=== PATIENT | male | born 1995 | race Caucasian/White ===

== ENCOUNTER 2016-12-31 19:15 | Emergency (ER) | payer MEDICAID ==
[~2016-12-31] VITALS: Ht 172.7 cm; Wt 98.5 kg
[2016-12-31 19:29] VITALS: Ht 172.7 cm; Wt 98.5 kg
[2016-12-31] MEDS ORDERED: SOD CHLORIDE 0.9% 1,000 ML IV STA (20:54)
[2016-12-31] MEDS ORDERED: KETOROLAC 30 MG INJ IV STA (20:54)
[2016-12-31] MEDS ORDERED: ONDANSETRON 4 MG INJ IV STA (20:54)
[2016-12-31 21:42] LABS: BASOPHIL # 0.1 10^3/ul (0.0-0.1); BASOPHILS % 0.6 % (0.0-2.0); EOSINOPHILS # 0.1 10^3/ul (0.0-0.5); EOSINOPHILS % 1.6 % (0.0-7.0); HEMATOCRIT 45.4 % (42.0-52.0); HEMOGLOBIN 15.2 g/dl (14.0-18.0); LYMPHOCYTES # 2.8 10^3/ul (0.8-2.9); LYMPHOCYTES % 31.5 % (15.0-51.0); MEAN CORPUSCULAR HEMOGLOBIN 29.1 pg (29.0-33.0); MEAN CORPUSCULAR HGB CONC 33.5 g/dl (32.0-37.0); MEAN PLATELET VOLUME 9.9 fl (7.4-10.4); MONOCYTE # 0.8 10^3/ul (0.3-0.9); MONOCYTES % 9.5 % (0.0-11.0); NEUTROPHILS % 56.6 % (39.0-77.0); PLATELET COUNT 410 10^3/UL (140-415); RED BLOOD COUNT 5.22 10^6/ul (4.70-6.10); RED CELL DISTRIBUTION WIDTH 12.9 % (11.5-14.5); WHITE BLOOD COUNT 8.9 10^3/ul (4.8-10.8)
[2016-12-31 21:49] LABS: ADD UMIC YES; UR ASCORBIC ACID 20 mg/dL (NEGATIVE); UR BILIRUBIN (Dip) NEGATIVE (NEGATIVE); UR BLOOD (Dip) NEGATIVE (NEGATIVE); UR CLARITY CLEAR (CLEAR); UR COLOR YELLOW (YELLOW); UR GLUCOSE (Dip) NEGATIVE (NEGATIVE); UR KETONES (Dip) NEGATIVE (NEGATIVE); UR LEUKOCYTE ESTERASE (Dip) 1+ Leu/ul (NEGATIVE); UR MUCUS FEW /HPF (NONE SEEN); UR NITRITE (Dip) NEGATIVE (NEGATIVE); UR RBC 6 /HPF (0-5); UR SPECIFIC GRAVITY (Dip) 1.027 (1.003-1.030); UR TOTAL PROTEIN (Dip) 1+ mg/dl (NEGATIVE); UR UROBILINOGEN (Dip) 2+ mg/dL (NEGATIVE)
[2016-12-31 21:51] LABS: ALBUMIN/GLOBULIN RATIO 1.51; BILIRUBIN,INDIRECT 0.4 mg/dl (0-1.1); BILIRUBIN,TOTAL 0.4 mg/dl (0.2-1.3); CREATININE 0.86 mg/dl (0.61-1.24); POTASSIUM 3.7 mmol/L (3.5-5.1); TOTAL PROTEIN 8.3 g/dl (6.1-8.1)
--- NOTE | 2016-12-31 22:11 | RADRPT ---
PROCEDURE: CT Abdomen and Pelvis without contrast. CLINICAL INDICATION: Flank pain TECHNIQUE: CT of the abdomen and pelvis was performed on a multi-detector scanner without IV contr ast. Coronal and sagittal images were reformatted from the axial data set. One or more of the foll owing dose reduction techniques were used: automated exposure control, adjustment of the mA and/or k V according to patient size, use of iterative reconstruction technique. CTDI = 19.35 mGy. DLP = 112 9.46 mGy-cm. COMPARISON: None. FINDINGS: The lung bases are clear. The heart size is normal, without pericardial effusion. Liver, gallbladd er, biliary tree, pancreas, spleen, adrenal glands and kidneys are unremarkable. There is no urolit hiasis or obstructive uropathy. The stomach is grossly unremarkable. The aorta is of normal caliber. There is no retroperitoneal lymphadenopathy. The rayray hepatis reg ion is clear. No bowel obstruction, free intraperitoneal air or abscess is identified. The appendix is well visual ized and normal. There is no diverticulosis, diverticulitis or colitis. Urinary bladder is grossly u nremarkable. No pelvic mass, free fluid or lymphadenopathy is identified. The surrounding osseous structures are unremarkable. No osteolytic or osteoblastic lesion is detect ed. IMPRESSION: 1. Unremarkable CT scan of the abdomen and pelvis. 2. No mass, lymphadenopathy, or focal acute inflammatory process is identified. 3. No urolithiasis or obstructive uropathy is seen. RPTAT: HDWR .Rafael Ramos MD, MD Date Time Electronically viewed and signed by .Rafael Ramos MD, MD on 12/31/2016 22:10 .R/
[2016-12-31] MEDS ORDERED: CIPR500T4 PO (22:58)
[2016-12-31] MEDS ORDERED: NAPR-260 PO (22:58)
[2016-12-31] MEDS ORDERED: CEFTRIAXONE 1 GM/50 ML (PMX) 50 ML IVPB ONE (23:00)
--- NOTE | 2016-12-31 23:15 | ERD ---
ER Documentation Chief Complaint Date/Time DATE: 12/31/16 TIME: 23:12 Chief Complaint Pt reports bilateral kidney pain and passed a stone this morning HPI 21-year-old male patient with no significant past medical history presents to the ED complaining of bilateral flank pain that started earlier today. Patient reports that he feels like he passed kidney stones. States that he drank 1 L of water and feels like he still having difficulty urinating due to the pain. Denies any penile discharge. States that he is sexually active. Reports that he has 1 partner. He noticed some slight hematuria. Denies any polyuria, polydipsia. Denies any fever, chills, abdominal pain, nausea, vomiting, diarrhea, constipation, scrotal pain. Denies any scrotal trauma or back trauma. ROS All systems reviewed and are negative except as per history of present illness. Medications Home Meds Active Scripts Naproxen* (Naprosyn*) 500 Mg Tablet, 500 MG PO BID Y for PAIN AND/OR INFLAMMATION, #30 TAB Prov:DONOVAN FUNEZ PA-C 12/31/16 Ciprofloxacin Hcl* (Ciprofloxacin Hcl*) 500 Mg Tablet, 500 MG PO BID for 10 Days , TAB Prov:DONOVAN FUNEZ PA-C 12/31/16 Allergies Allergies: Coded Allergies: No Known Allergy (Unverified , 12/31/16) PMhx/Soc Medical and Surgical Hx: pt denies Medical Hx, pt denies Surgical Hx Hx Alcohol Use: No Hx Substance Use: No Hx Tobacco Use: Yes (3CIG/DAY) Smoking Status: Light tobacco smoker Physical Exam Vitals Vital Signs Date Time Temp Pulse Resp B/P Pulse Ox O2 Delivery O2 Flow Rate FiO2 12/31/16 19:29 99.0 104 20 126/94 97 Physical Exam Const: [id number], well-nourished. In no acute distress. Head: Atraumatic, normocephalic Eyes: Normal Conjunctiva without injection. No purulent discharge. ENT: Normal external ear, nose. Moist oropharynx without tonsillar exudates. Non -erythematous pharynx. Uvula midline. No drooling. No trismus. Neck: No cervical midline tenderness. Full range of motion. No meningismus. No cervical lymphadenopathy. No JVD. Resp: Clear to auscultation bilaterally. No wheezing, rhonchi, rales, or crackles. No accessory muscle use. No retractions. Cardio: Regular rate and rhythm. No murmurs, rubs or gallops. Abd: Soft, nontender, non distended. Normal bowel sounds. No palpable masses. No rebound tenderness. No guarding. Negative McBurney's point. Negative psoas sign. Negative obturator sign. Skin: No petechiae or rashes Back: No midline tenderness. No CVA tenderness. Ext: No cyanosis, or edema. Neur: Awake and alert. Normal gait. Normal coordination. Psych: Normal Mood and Affect Result Diagram: 12/31/16211412/31/162114 Results 24 hrs Laboratory Tests Test 12/31/16 20:20 12/31/16 21:15 Urine Color YELLOW Urine Clarity CLEAR Urine pH 5.0 Urine Specific [place] 1.027 Urine Ketones NEGATIVEmg/dL Urine Nitrite NEGATIVEmg/dL Urine Bilirubin NEGATIVEmg/dL Urine Urobilinogen 2+mg/dL Urine Leukocyte Esterase 1+Ruby/ul Urine Microscopic RBC 6/HPF Urine Microscopic WBC 26/HPF Urine Mucus FEW/HPF Urine Hemoglobin NEGATIVEmg/dL Urine Glucose NEGATIVEmg/dL Urine Total Protein 1+mg/dl White Blood Count 8.910^3/ul Red Blood Count 5.2210^6/ul Hemoglobin 15.2g/dl Hematocrit 45.4% Mean Corpuscular Volume 87.0fl Mean Corpuscular Hemoglobin 29.1pg Mean Corpuscular Hemoglobin Concent 33.5g/dl Red Cell Distribution Width 12.9% Platelet Count 54740^3/UL Mean Platelet Volume 9.9fl Neutrophils % 56.6% Lymphocytes % 31.5% Monocytes % 9.5% Eosinophils % 1.6% Basophils % 0.6% Nucleated Red Blood Cells % 0.0/100WBC Neutrophils # 5.010^3/ul Lymphocytes # 2.810^3/ul Monocytes # 0.810^3/ul Eosinophils # 0.110^3/ul Basophils # 0.110^3/ul Nucleated Red Blood Cells # 0.010^3/ul Sodium Level 143mmol/L Potassium Level 3.7mmol/L Chloride Level 101mmol/L Carbon Dioxide Level 29mmol/L Anion Gap 17 Blood Urea Nitrogen 12mg/dl Creatinine 0.86mg/dl Glucose Level 83mg/dl Calcium Level 10.0mg/dl Total Bilirubin 0.4mg/dl Direct Bilirubin 0.00mg/dl Indirect Bilirubin 0.4mg/dl Aspartate Amino Transf (AST/SGOT) 31IU/L Alanine Aminotransferase (ALT/SGPT) 61IU/L Alkaline Phosphatase 78IU/L Total Protein 8.3g/dl Albumin 5.0g/dl Globulin 3.30g/dl Albumin/Globulin Ratio 1.51 Lipase 122U/L Current Medications Medications (Trade) Dose Ordered Sig/Be Route PRN Reason Start Time Stop Time Status Last Admin Dose Admin Sodium Chloride (NS) 1,000 ml @ 1,000 mls/hr Q1H STAT IV 12/31/16 20:54 12/31/16 21:53 DC 12/31/16 21:22 Ondansetron HCl (Zofran Inj) 4 mg ONCE STAT IV 12/31/16 20:54 12/31/16 20:59 DC 12/31/16 21:22 Ketorolac Tromethamine 30 mg 30 mg ONCE STAT IV 12/31/16 20:54 12/31/16 20:59 DC 12/31/16 21:22 Ceftriaxone Sodium (Rocephin) 50 ml @ 100 mls/hr ONCE ONCE IVPB 12/31/16 23:00 12/31/16 23:29 DC 12/31/16 22:52 Procedures/MDM This is a 21-year-old male patient with no significant past medical history presents to the ED complaining of bilateral flank pain. Patient is afebrile and nontoxic-appearing. Patient was further worked up with CBC, CMP, lipase, UA , CT of the abdomen and pelvis without contrast. Patient's pain and symptoms have improved after treatment with 1 liter of normal saline, 30 mg IV ketorolac. CBC: No leukocytosis. No e/o of systemic infection. No e/o anemia. CMP: No e/o severe acidosis, alkalosis, renal failure, diabetic ketoacidosis, liver disease Lipase within normal limits. Urine: No leukocyte esterase, no nitrites, no hematuria. PROCEDURE: CT Abdomen and Pelvis without contrast. CLINICAL INDICATION: Flank pain TECHNIQUE: CT of the abdomen and pelvis was performed on a multi-detector scanner without IV contrast. Coronal and sagittal images were reformatted from the axial data set. One or more of the following dose reduction techniques were used: automated exposure control, adjustment of the mA and/or kV according to patient size, use of iterative reconstruction technique. CTDI = 19.35 mGy. DLP = 1129.46 mGy-cm. COMPARISON: None. FINDINGS: The lung bases are clear. The heart size is normal, without pericardial effusion. Liver, gallbladder, biliary tree, pancreas, spleen, adrenal glands and kidneys are unremarkable. There is no urolithiasis or obstructive uropathy. The stomach is grossly unremarkable. The aorta is of normal caliber. There is no retroperitoneal lymphadenopathy. The rayray hepatis region is clear. No bowel obstruction, free intraperitoneal air or abscess is identified. The appendix is well visualized and normal. There is no diverticulosis, diverticulitis or colitis. Urinary bladder is grossly unremarkable. No pelvic mass, free fluid or lymphadenopathy is identified. The surrounding osseous structures are unremarkable. No osteolytic or osteoblastic lesion is detected. IMPRESSION: 1. Unremarkable CT scan of the abdomen and pelvis. 2. No mass, lymphadenopathy, or focal acute inflammatory process is identified. 3. No urolithiasis or obstructive uropathy is seen. Patient likely passed his kidney stones here in the ED. Patient urinated and he noticed some calcified stones in the urine cup. Patient was able to urinate here in the ED without difficulty. Patient will be treated for a urinary tract infection with Rocephin here in the ED. Low suspicion for testicular torsion, urinary retention gastritis, GERD, peptic ulcer disease, cholecystitis, choledocholithiasis, cholangitis, pancreatitis, appendicitis, bowel obstruction , ileus, volvulus, nephrolithiasis, pyelonephritis, hepatitis, perforated viscus , diverticulitis, abdominal hernia, acute abdomen, mesenteric ischemia or other emergent conditions. Discharge medications: Ciprofloxacin, Naproxen Follow up with primary care physician in 1-2 days for referral to a urologist for further evaluation and treatment. Instructed patient to return to the ED sooner for any worsening symptoms. Patient's questions were answered. Patient understood and agreed with discharge plan. Patient discharged stable. Departure Diagnosis: Primary Impression: Flank pain Condition: Stable Patient Instructions: Urinary Tract Infections in Men, Kidney Stone, Passed Referrals: COMMUNITY CLINICS YOU HAVE RECEIVED A MEDICAL SCREENING EXAM AND THE RESULTS INDICATE THAT YOU DO NOT HAVE A CONDITION THAT REQUIRES URGENT TREATMENT IN THE EMERGENCY DEPARTMENT. FURTHER EVALUATION AND TREATMENT OF YOUR CONDITION CAN WAIT UNTIL YOU ARE SEEN IN YOUR DOCTORS OFFICE WITHIN THE NEXT 1-2 DAYS. IT IS YOUR RESPONSIBILITY TO MAKE AN APPOINTMENT FOR FOLOW-UP CARE. IF YOU HAVE A PRIMARY DOCTOR --you should call your primary doctor and schedule an appointment IF YOU DO NOT HAVE A PRIMARY DOCTOR YOU CAN CALL OUR PHYSICIAN REFERRAL HOTLINE AT IF YOU CAN NOT AFFORD TO SEE A PHYSICIAN YOU CAN CHOSE FROM THE FOLLOWING [facility] [id number] [facility] [address] [facility] [address] [facility] [address] [facility] [address] [facility]. [facility] [address] [facility] YOU HAVE RECEIVED A MEDICAL SCREENING EXAM AND THE RESULTS INDICATE THAT YOU DO NOT HAVE A CONDITION THAT REQUIRES URGENT TREATMENT IN THE EMERGENCY DEPARTMENT. FURTHER EVALUATION AND TREATMENT OF YOUR CONDITION CAN WAIT UNTIL YOU ARE SEEN IN YOUR DOCTORS OFFICE WITHIN THE NEXT 1-2 DAYS. IT IS YOUR RESPONSIBILITY TO MAKE AN APPOINTMENT FOR FOLOW-UP CARE. IF YOU HAVE A PRIMARY DOCTOR --you should call your primary doctor and schedule and appointment IF YOU DO NOT HAVE A PRIMARY DOCTOR YOU CAN CALL OUR PHYSICIAN REFERRAL HOTLINE AT . IF YOU CAN NOT AFFORD TO SEE A PHYSICIAN YOU CAN CHOSE FROM THE FOLLOWING [facility] INSTITUTIONS: [facility] [address] [place] [address] [facility] [address] [place] [address] [facility] [address] [place] [address] [facility] Additional Instructions: FOLLOW UP WITH YOUR PRIMARY CARE PHYSICIAN TOMORROW for a referral to see a urologist. Return to this facility if you are not improving as expected. DONOVAN FUNEZ PA-C Dec 31, 2016 23:15
== END 2016-12-31 23:29 | disposition home or self-care (01) ==
LOC: FTE 19:15 → EDSEX 19:15 → FTE 23:29
DX: R10.9 Unspecified abdominal pain (principal); F17.210 Nicotine dependence, cigarettes, uncomplicated
CPT/HCPCS: 36415; 74176; 80053; 81001; 83690; 85025; 87086; 96374; 96375; J0696; J1885; J2405; J7030; Z7502

== ENCOUNTER 2017-08-26 02:38 | Emergency (ER) | END 2017-08-26 04:57 | disposition left against medical advice (07) ==